=== PATIENT | male | born 1995 | race African-American/Black ===

== ENCOUNTER 2016-08-01 14:02 | Emergency (ER) | payer BC, OTHER ==
[~2016-08-01] VITALS: Ht 182.9 cm; Wt 172.5 kg
[2016-08-01 14:04] VITALS: Ht 182.9 cm; Wt 172.5 kg
[2016-08-01] MEDS ORDERED: HYDROCODONE/APAP (5/325) TAB PO ONE (15:30)
[2016-08-01] MEDS ORDERED: IBUPROFEN 600 MG TAB PO ONE (15:30)
--- NOTE | 2016-08-01 15:53 | ERD ---
ER Documentation Chief Complaint Date/Time DATE: 08/01/16 TIME: 15:51 Chief Complaint RIGHT HAND PAIN S/P PUNCHED THE WALL TODAY HPI 20-year-old male comes in with right-sided hand pain after he punched a wall today. He states that he had gotten some mail today which caused him to become angry and he hit a wall, he denies any assaults injury. He has diffuse pain with swelling, aching a little right lateral, worse with movement and better at rest. He denies any paresthesias or weakness. ROS All systems reviewed and are negative except as per history of present illness. Medications Home Meds Active Scripts Ibuprofen* (Motrin*) 600 Mg Tab, 600 MG PO Q6, #30 TAB Prov:JOANNA DOBBS PA-C 08/01/16 Hydrocodone/Acetaminophen ([place] 5-325 Tablet) 1 Each Tablet, 1 TAB PO Q6H Y for PAIN, #15 TAB Prov:JOANNA DOBBS PA-C 08/01/16 Allergies Allergies: Coded Allergies: No Known Allergy (Unverified , 08/01/16) PMhx/Soc Medical and Surgical Hx: pt denies Medical Hx, pt denies Surgical Hx Hx Alcohol Use: No Hx Substance Use: No Hx Tobacco Use: No Smoking Status: Never smoker Physical Exam Vitals Vital Signs Date Time Temp Pulse Resp B/P Pulse Ox O2 Delivery O2 Flow Rate FiO2 08/01/16 14:04 98.2 63 18 174/77 99 Physical Exam General: Well-developed, well-nourished. The patient appears in no acute distress. HEENT: Head is normocephalic, atraumatic. No scleral icterus. Neck: Supple. Nontender. Lungs: Clear to auscultation. Normal air movement. Heart: Regular rate and rhythm. S1 and S2 are normal. No murmurs, gallops, or rubs. Abdomen: Nondistended. Extremities: Right ventral aspect of the hand shows swelling diffusely at the lateral aspect. Patient is full range of motion of the DIP, PIP joint of all digits of the right hand. Capillary refill less than 2 seconds. No overlying laceration. Sensation is distally intact. Neurologic: Alert and oriented 3. No focal deficits. Normal speech and gait. Skin: Normal turgor. No rash or lesions. Results 24 hrs Current Medications Medications (Trade) Dose Ordered Sig/Abdirashid Route PRN Reason Start Time Stop Time Status Last Admin Dose Admin Ibuprofen (Motrin) 600 mg ONCE ONCE PO 08/01/16 15:30 08/01/16 15:31 DC 08/01/16 15:24 Acetaminophen/ Hydrocodone Bitart ([place] (5/325)) 1 tab ONCE ONCE PO 08/01/16 15:30 08/01/16 15:31 DC 08/01/16 15:24 PROCEDURE: XR Right Hand CLINICAL INDICATION: Punched a wall TECHNIQUE: AP, oblique, and lateral radiographs were submitted. COMPARISON: None FINDINGS: Osseous structures: There is a comminuted interarticular fracture involving the base of the right fourth metacarpal. There is an avulsed fragment projecting posterior to the carpal bones and proximal to the base of the fifth metacarpal, probably avulsed off the hamate. No other fractures identified. Joint spaces: Aside from the interarticular fracture is mentioned, the remaining joint spaces are anatomically maintained. Soft tissues: There is soft tissue swelling. IMPRESSION: 1. Comminuted intra-articular fracture of the base of right fourth metacarpal. 2. Intra-articular avulsion, probably off the distal medial hamate. Physician Huan Date Time Electronically viewed and signed by Physician Huan on 08/01/2016 16:07 RH/ Procedures/MDM ED course: Patient was given ibuprofen [place] for pain. X-rays of the right hand were obtained. Patient's right hand was placed in a modified ulnar gutter splint. Splint Assessment: Neurovascularly intact post splint placement with good fit. Medical decision makin-year-old male states that he punched a wall and complains of right-sided hand pain, comes with intra-articular right fourth metacarpal fracture that is a closed injury. He is distally neurovascularly intact and has full range of motion with all digits. Patient has a closed hand fracture at this time and he was appropriately splinted and will be discharged to be followed up with orthopedics. He was instructed to recheck with orthopedist in the next 1-2 days. The case was reviewed and discussed with Dr. Hou who agrees with the plan of care including labs, treatment, and advanced imaging as appropriate. Departure Diagnosis: Primary Impression: Closed hand fracture Condition: JOANNA Gee PA-C August 01, 2016 15:52
--- NOTE | 2016-08-01 16:07 | RADRPT ---
PROCEDURE: XR Right Hand CLINICAL INDICATION: Punched a wall TECHNIQUE: AP, oblique, and lateral radiographs were submitted. COMPARISON: None FINDINGS: Osseous structures: There is a comminuted interarticular fracture involving the base of the right fo urth metacarpal. There is an avulsed fragment projecting posterior to the carpal bones and proximal to the base of the fifth metacarpal, probably avulsed off the hamate. No other fractures identifie d. Joint spaces: Aside from the interarticular fracture is mentioned, the remaining joint spaces are an atomically maintained. Soft tissues: There is soft tissue swelling. IMPRESSION: 1. Comminuted intra-articular fracture of the base of right fourth metacarpal. 2. Intra-articular avulsion, probably off the distal medial hamate. Physician Huan Date Time Electronically viewed and signed by Leoanrdo Camilo Physician on 08/01/2016 16:07 /
[2016-08-01] MEDS ORDERED: HYDR-906 PO (16:16)
[2016-08-01] MEDS ORDERED: IBUP-1542 PO (16:16)
== END 2016-08-01 16:49 | disposition home or self-care (01) ==
LOC: FTE 14:02
DX: S62.314A Displaced fracture of base of fourth metacarpal bone, right hand, initial encounter for closed fracture (principal); W22.8XXA Striking against or struck by other objects, initial encounter; Y92.9 Unspecified place or not applicable

== ENCOUNTER 2018-04-06 21:11 | Emergency (ER) | payer BC ==
[~2018-04-06] VITALS: Ht 185.4 cm; Wt 167.9 kg
[~2018-04-06 21:11] MED LIST: HYDR-4011 PO; IBUP-1542 PO
[2018-04-06 21:12] VITALS: BP 128/75; PULSE 56; RESP 18; Ht 185.4 cm; Wt 167.9 kg
[2018-04-06] MEDS ORDERED: ONDANSETRON (ODT) 4 MG TAB ODT STA (23:08)
[2018-04-06] MEDS ORDERED: KETOROLAC 30 MG INJ IM STA (23:08)
[2018-04-07] MEDS ORDERED: ONDA4TAB14 PO (00:11)
[2018-04-07] MEDS ORDERED: IBUP-1542 PO (00:11)
--- NOTE | 2018-04-07 07:03 | ERD ---
ER Documentation Chief Complaint Chief Complaint HEADACHE X2DAYS; TYLENOL @ 1630 TODAY; NO N/V HPI 22-year-old male presents for headache times 2 days. Patient took Tylenol today without relief. He denies any nausea or vomiting. Patient states that the pain is located in the temporal area, rated 9 out of 10. The pain is intermittent, described as sharp. Patient denies any vision changes. Patient states that he has had similar headaches in the past. No other complaints. ROS All systems reviewed and are negative except as per history of present illness. Medications Home Meds Active Scripts Ondansetron (Ondansetron Odt) 4 Mg Tab.rapdis, 4 MG PO Q6H PRN for NAUSEA AND/OR VOMITING, #10 TAB Prov:PRISCILLA GARNETT DO 04/07/18 Ibuprofen* (Motrin*) 600 Mg Tab, 600 MG PO Q6H PRN for PAIN, #30 TAB Prov:PRISCILLA GARNETT DO 04/07/18 Ibuprofen* (Motrin*) 600 Mg Tab, 600 MG PO Q6, #30 TAB Prov:JOANNA DOBBS PA-C 08/01/16 Hydrocodone/Acetaminophen (Only 5-325 Tablet) 1 Each Tablet, 1 TAB PO Q6H PRN for PAIN, #15 TAB Prov:JOANNA DOBBS PA-C 08/01/16 Allergies Allergies: Coded Allergies: No Known Allergy (Unverified , 08/01/16) PMhx/Soc Hx Miscellaneous Medical Probl: Yes (messi 2011) Hx Alcohol Use: No Hx Substance Use: Yes (marijuana) Hx Tobacco Use: No Smoking Status: Current some day smoker Physical Exam Vitals Vital Signs Date Temp Pulse Resp B/P (MAP) Pulse Ox O2 O2 Flow FiO2 Time Delivery Rate 04/06/18 98.9 56 18 128/75 100 21:12 (92) Physical Exam Const: No acute distress Head: Atraumatic, no temporal area tenderness to palpation Eyes: Normal Conjunctiva, pupils equal, round, reactive to light bilaterally ENT: Normal External Ears, bilateral tympanic membrane intact without erythema or bulging noted, Nose and Mouth. No tonsillar swelling or exudate noted Neck: Full range of motion. No meningismus, no bruits noted Resp: Clear to auscultation bilaterally Cardio: Regular rate and rhythm, no murmurs, bilateral radial and dorsalis pedis pulses intact Skin: No petechiae or rashes Ext: No cyanosis, or edema, 5 out of 5 muscular bilateral upper and lower extremities Neur: Awake and alert, bilateral upper and lower extremity sensation intact Psych: Normal Mood and Affect Results 24 hrs Current Medications Medications Dose Sig/Abdirashid Start Time Status Last (Trade) Ordered Route PRN Stop Time Admin Dose Reason Admin Ketorolac 30 mg ONCE STAT 04/06/18 DC 04/06/18 Tromethamine IM 23:08 23:20 (Toradol) 04/06/18 23:09 Ondansetron 4 mg ONCE STAT 04/06/18 DC 04/06/18 HCl (Zofran ODT 23:08 23:21 Odt) 04/06/18 23:09 Procedures/MDM Medical Decision Making: Differential diagnosis includes but not limited to primary headache, subarachnoid hemorrhage, meningitis, temporal arteritis, glaucoma, hypertension, cerebral ischemia, carotid or vertebral arterial dissection, brain tumor. Patient appeared well on physical examination, nontoxic appearing. No history of fever. There is low suspicion for meningitis. Given patient's age and no temporal area tenderness to palpation, low suspicion for temporal arteritis. Patient has no vision changes and pupils are reactive bilaterally, low suspicion for glaucoma. There is also no focal neurologic deficits to suggest a brain tumor. Patient has normal sensation and muscle strength, low suspicion for cerebral ischemia. Given headache is similar to prior headaches, patient possibly has a primary headache. In the ER patient given Toradol and Zofran Symptoms improved with treatment. Patient given prescription for Zofran and Motrin. Patient advised to continue to take Tylenol at home as needed for pain. Patient advised to follow up with PCP in 1-2 days. Patient advised to return to ED for new or worsening symptoms. Patient stable on discharge from the ED. Disclaimer: Inadvertent spelling and grammatical errors are likely due to EHR/dictation software use and do not reflect on the overall quality of patient care. Also, please note that the electronic time recorded on this note does not necessarily reflect the actual time of the patient encounter. Departure Diagnosis: Primary Impression: Headache Condition: Fair Patient Instructions: Self-Care for Headaches Referrals: COMMUNITY CLINICS YOU HAVE RECEIVED A MEDICAL SCREENING EXAM AND THE RESULTS INDICATE THAT YOU DO NOT HAVE A CONDITION THAT REQUIRES URGENT TREATMENT IN THE EMERGENCY DEPARTMENT. FURTHER EVALUATION AND TREATMENT OF YOUR CONDITION CAN WAIT UNTIL YOU ARE SEEN IN YOUR DOCTORS OFFICE WITHIN THE NEXT 1-2 DAYS. IT IS YOUR RESPONSIBILITY TO MAKE AN APPOINTMENT FOR FOLOW-UP CARE. IF YOU HAVE A PRIMARY DOCTOR --you should call your primary doctor and schedule an appointment IF YOU DO NOT HAVE A PRIMARY DOCTOR YOU CAN CALL OUR PHYSICIAN REFERRAL HOTLINE AT IF YOU CAN NOT AFFORD TO SEE A PHYSICIAN YOU CAN CHOSE FROM THE FOLLOWING [facility] [address] [facility] [address] [facility] [facility] [place] [facility] [address] [facility] [address] [facility]. [facility] [address] [facility]. [facility]. [address] Additional Instructions: Call your primary care doctor TOMORROW for an appointment during the next 1-2 days.See the doctor sooner or return here if your condition worsens before your appointment time. PRISCILLA GARNETT DO Apr 07, 2018 07:03
== END 2018-04-07 00:23 | disposition home or self-care (01) ==
LOC: FTE 21:11
DX: R51 Headache (principal); F17.210 Nicotine dependence, cigarettes, uncomplicated
CPT/HCPCS: 96372; 99284; J1885